=== PATIENT | female | born 1995 | race American Indian/Alaskan Native ===

== ENCOUNTER 2020-09-02 00:54 | Inpatient (IN) | payer OTHER ==
[2020-09-02] MEDS ORDERED: ONDANSETRON 4 MG/2 ML INJ ONE ×2 (01:31→07:10)
--- NOTE | 2020-09-02 03:20 | Cat Scan Report ---
CT head/brain wo con INDICATION: Altered Mental Status. TECHNIQUE: Routine CT head without contrast. All CT scans at this location are performed using CT dos e reduction for ALARA by means of automated exposure control. COMPARISON: None. FINDINGS: BRAIN / INTRACRANIAL CONTENTS: No acute hemorrhage, mass effect, midline shift, or hydrocephalus. No appreciable acute large territorial or lacunar infarct. No chronic infarct or focal atrophy. Normal b rain volume and ventricular/sulcal size for age. ORBITS: No significant abnormality of visualized orbits. SINUSES / MASTOIDS: No significant abnormality of visualized sinuses and mastoid air cells. ADDITIONAL FINDINGS: None. IMPRESSION: 1. No acute intracranial abnormality. Signer Name: Silver Emerson MD Signed: 09/02/2020 3:19 AM Workstation Name: Marley Spoon
[2020-09-02] MEDS ORDERED: SODIUM CHLORIDE 0.9% 1000 ML 1,000 ML IV ONE ×2 (03:27→05:26)
[2020-09-02 04:22] LABS: INR 1.09 (0.87-1.13)
[2020-09-02 04:23] LABS: Partial Thromboplastin Time 25.8 Sec. (24.2-36.6)
[2020-09-02] MEDS ORDERED: ACETAMINOPHEN 325 MG TAB PO PRN (04:57)
--- NOTE | 2020-09-02 05:13 | Emergency Department Report ---
History of Present Illness - General Chief Complaint: Altered Mental Status Time Seen by Provider: 09/02/20 03:27 Source: patient, EMS Mode of arrival: Stretcher Limitations: No Limitations - History of Present Illness Initial Comments: Patient brought via EMS, lethargic, with the complaint of taking 20 extra strength Tylenol, and a suicidal gesture. Family, was unable to verified how many pills the patient took, but did confirm the suicidal gesture. Patient hyperventilating, unable to contribute much to story. - Related Data Allergies Allergy/AdvReac Type Severity Reaction Status Date / Time dill oil Allergy Unknown Verified 09/02/20 04:04 ED Review of Systems ROS: Stated complaint: Other details as noted in HPI Comment: Unobtainable due to pts medical conditions ED Past Medical Hx - Past Medical History Previous Medical History?: No ED Physical Exam - General General appearance: lethargic, in distress - Head Head exam: Present: atraumatic, normocephalic - Eye Eye exam: Present: normal appearance - ENT ENT exam: Present: mucous membranes moist - Neck Neck exam: Present: normal inspection - Respiratory Respiratory exam: Present: normal lung sounds bilaterally. Absent: respiratory distress - Cardiovascular Cardiovascular Exam: Present: normal rhythm, tachycardia. Absent: systolic murmur, diastolic murmur, rubs, gallop - GI/Abdominal GI/Abdominal exam: Present: soft, normal bowel sounds - Extremities Exam Extremities exam: Present: normal inspection - Back Exam Back exam: Present: normal inspection - Neurological Exam Neurological exam: Present: altered, reflexes normal - Psychiatric Psychiatric exam: Present: depressed, suicidal ideation - Skin Skin exam: Present: warm, dry, intact, normal color. Absent: rash ED Course Vital Signs 09/02/20 09/02/20 09/02/20 03:02 03:15 03:30 Pulse Rate 74 89 86 Respiratory 17 27 H 29 H Rate Blood Pressure 121/61 113/60 135/49 O2 Sat by Pulse 99 99 99 Oximetry 09/02/20 09/02/20 09/02/20 03:45 04:00 04:15 Pulse Rate 107 H 93 H 95 H Respiratory 31 H 22 25 H Rate Blood Pressure 126/67 133/72 150/62 O2 Sat by Pulse 98 99 98 Oximetry 09/02/20 09/02/20 09/02/20 04:30 04:45 05:00 Pulse Rate 84 78 97 H Respiratory 26 H 18 21 Rate Blood Pressure 129/58 129/69 121/73 O2 Sat by Pulse 98 99 100 Oximetry 09/02/20 09/02/20 09/02/20 05:15 05:30 05:45 Pulse Rate 96 H 79 85 Respiratory 17 27 H 12 Rate Blood Pressure 114/57 130/75 121/78 O2 Sat by Pulse 99 99 98 Oximetry ED Medical Decision Making - Radiology Data Radiology results: report reviewed, image reviewed - Medical Decision Making acetaminophen od, nomogram plotted, treatment recommended. - Differential Diagnosis alcohol abuse, dts, drug od, Critical Care Time: Yes Critical care time in (mins) excluding proc time.: 45 Critical care attestation.: If time is entered above; I have spent that time in minutes in the direct care of this critically ill patient, excluding procedure time. Critical Care Time: managing tylenol od, ams, starting mucomyst, admit to [facility] ED Disposition Clinical Impression: Acetaminophen overdose Qualifiers: Encounter type: initial encounter Injury intent: intentional self-harm Qualified Code(s): T39.1X2A - Poisoning by 4-Aminophenol derivatives, intentional self-harm, initial encounter Suicide attempt by acetaminophen overdose Qualifiers: Encounter type: initial encounter Qualified Code(s): T39.1X2A - Poisoning by 4- Aminophenol derivatives, intentional self-harm, initial encounter Disposition: DC-09 OP ADMIT IP TO THIS HOSP Is pt being admited?: Yes Does the pt Need Aspirin: No Condition: Critical Referrals: PRIMARY CARE, [Primary Care Provider] - 3-5 Days
[2020-09-02] MEDS ORDERED: ONDANSETRON 4 MG/2 ML INJ IV PRN (05:30)
[2020-09-02 05:31] LABS: ABG Base Excess -4.2 mmol/L (-2.0-3.0); ABG HCO3 19.3 mmol/L (20.0-26.0); ABG Methemoglobin 0.8 % (0.0-1.5); ABG Oxygen Saturation 98.2 % (95.0-99.0); ABG PCO2 29.9 mm Hg; ABG PH 7.427 pH Units (7.350-7.450); ABG PO2 113.2 mm Hg (80.0-90.0)
--- NOTE | 2020-09-02 05:59 | History and Physical Report ---
History of Present Illness Date of examination: 09/02/20 Date of admission: 09/02/20 Chief complaint: Chief complaint is lethargy and drug overdose with Tylenol History of present illness: History of presenting illness, patient is a 25-year-old female who took about 20 tablets of extra strength Tylenol with the intention of killing herself after having some misunderstanding with her significant other. There was no history of nausea and vomiting, there was no history of abdominal pain, shortness of breath, headache, dizziness or altered mental status, however patient was unable to provide detailed information about what happened. Past History Past Surgical History: No surgical history Social history: no significant social history Family history: no significant family history Medications and Allergies Allergies Allergy/AdvReac Type Severity Reaction Status Date / Time dill oil Allergy Unknown Verified 09/02/20 04:04 Active Meds: Active Medications Heparin Sodium (Porcine) (Heparin) 5,000 unit SUB-Q Q12HR SAVANNA Sodium Chloride (Nacl 0.9% 1000 Ml) 1,000 mls @ 999 mls/hr IV BOLUS ONE Stop: 09/02/20 06:26 Acetylcysteine 13,650 mg/ (Dextrose) 268.25 mls @ 268.25 mls/hr IV ONCE ONE Stop: 09/02/20 06:59 Acetylcysteine 4,550 mg/ (Dextrose) 522.75 mls @ 130.688 mls/hr IV ONCE ONE Stop: 09/02/20 11:29 Acetylcysteine 9,100 mg/ (Dextrose) 1,045.5 mls @ 62.5 mls/hr IV ONCE ONE Stop: 09/03/20 04:43 Sodium Chloride (Nacl 0.9% 1000 Ml) 1,000 mls @ 125 mls/hr IV DIRECT SAVANNA Ondansetron HCl (Zofran) 4 mg IV Q8H PRN PRN Reason: Nausea And Vomiting Sodium Chloride (Sodium Chloride Flush Syringe 10 Ml) 10 ml IV BID SAVANNA Sodium Chloride (Sodium Chloride Flush Syringe 10 Ml) 10 ml IV PRN PRN PRN Reason: LINE FLUSH Review of Systems Constitutional: malaise, no fever, no anorexia, no fatigue, no weakness Eyes: bilateral: other (NO BILATERAL EYE SYMPTOMS) Ears, nose, mouth and throat: no sore throat, no odynophagia, no headache Breasts: deferred Cardiovascular: no chest pain, no palpitations, no syncope, no lightheadedness, no shortness of breath Respiratory: no cough, no shortness of breath, no dyspnea on exertion, no wheezing Gastrointestinal: no abdominal pain, no nausea, no vomiting, no diarrhea, no hematemesis, no hematochezia Musculoskeletal: no neck stiffness, no neck pain, no muscle weakness, no myalgias Integumentary: no rash, no pruritis, no redness, no sores, no jaundice Neurological: change in speech, no paralysis, no weakness, no parathesias, no numbness, no tingling, no syncope, no tremors, no headaches, no convulsions, no change in mentation, no confusion, no memory loss Psychiatric: suicidal ideation, depression Endocrine: no polydipsia, no polyuria, no nocturia, no palpatations Hematologic/Lymphatic: no easy bruising, no easy bleeding Exam - Constitutional Vitals: Temp Pulse Resp BP Pulse Ox 85 12 121/78 98 09/02/20 05:45 09/02/20 05:45 09/02/20 05:45 09/02/20 05:45 General appearance: Present: no acute distress, mild distress - EENT Eyes: Present: PERRL, EOM intact ENT: hearing intact, clear oral mucosa - Neck Neck: Present: supple, normal ROM - Respiratory Respiratory effort: normal - Cardiovascular Rhythm: regular Heart Sounds: Present: S1 & S2. Absent: gallop, systolic murmur, diastolic murmur, click - Extremities Extremities: no ischemia, No edema Peripheral Pulses: within normal limits - Abdominal General gastrointestinal: Present: soft, non-tender, non-distended. Absent: tender, distended, rigid, hepatomegaly, splenomegaly Female genitourinary: Present: deferred - Rectal Rectal Exam: deferred - Integumentary Integumentary: Present: clear, warm, dry, jaundice - Musculoskeletal Musculoskeletal: strength equal bilaterally, generalized weakness - Psychiatric Psychiatric: depressed HEART Score - HEART Score Risk factors: No known risk factors Troponin: < normal limit - Critical Actions Critical Actions: 0-3 pts:0.9-1.7%risk of adverse cardiac event.Candidate for discharge Results - Labs Labs: Laboratory Last Values PT 14.2 Sec. (12.2-14.9) 09/02/20 03:44 INR 1.09 (0.87-1.13) 09/02/20 03:44 APTT 25.8 Sec. (24.2-36.6) 09/02/20 03:44 ABG pH 7.427 pH Units (7.350-7.450) 09/02/20 05:07 ABG pCO2 29.9 mm Hg 09/02/20 05:07 ABG pO2 113.2 mm Hg (80.0-90.0) H 09/02/20 05:07 ABG HCO3 19.3 mmol/L (20.0-26.0) L 09/02/20 05:07 ABG O2 Saturation 98.2 % (95.0-99.0) 09/02/20 05:07 ABG O2 Content 14.8 (0.0-44) 09/02/20 05:07 ABG Base Excess -4.2 mmol/L (-2.0-3.0) L 09/02/20 05:07 ABG Hemoglobin 10.8 gm/dl (12.0-16.0) L 09/02/20 05:07 ABG Carboxyhemoglobin 1.3 % (0.0-5.0) 09/02/20 05:07 ABG Methemoglobin 0.8 % (0.0-1.5) 09/02/20 05:07 Oxyhemoglobin 96.1 % (95.0-99.0) 09/02/20 05:07 FiO2 21 % 09/02/20 05:07 Lactic Acid 1.30 mmol/L (0.7-2.0) 09/02/20 03:44 Ammonia 30.0 umol/L (25-60) 09/02/20 03:44 Salicylates < 0.3 mg/dL (2.8-20.0) L 09/02/20 04:15 Acetaminophen 181.2 ug/mL (10.0-30.0) H 09/02/20 04:15 Assessment and Plan - Patient Problems (1) Acetaminophen overdose Current Visit: Yes Status: Acute Qualifiers: Encounter type: initial encounter Injury intent: intentional self-harm Qualified Code(s): T39.1X2A - Poisoning by 4-Aminophenol derivatives, intentional self-harm, initial encounter Plan to address problem: 1. ICU ADMISSION 2. ACETADOTE PER POISON CONTROL RECOMMENDATION 3. I.V NORMAL SALINE 4. CONTINUE INVOLUNTARY CONFINEMENT 5. MENTAL HEALTH/PSYCHIATRIC CONSULT 6. I.V ZOFRAN FOR NAUSEA AND VOMITING (2) Suicide attempt by acetaminophen overdose Current Visit: Yes Status: Acute Qualifiers: Encounter type: initial encounter Qualified Code(s): T39.1X2A - Poisoning by 4-Aminophenol derivatives, intentional self-harm, initial encounter Plan to address problem: 1. PSYCHIATRIC CONSULT 2. INVOLUTARY CONFINEMENT
[2020-09-02] MEDS ORDERED: DEXTROSE 5% IV ONE ×3 (06:00→12:00)
[2020-09-02] MEDS ORDERED: ACETADOTE IV ONE ×3 (06:00→12:00)
[2020-09-02] MEDS ORDERED: WATER IV ONE ×3 (06:00→12:00)
[2020-09-02] MEDS ORDERED: SODIUM CHLORIDE 0.9% 1000 ML 1,000 ML ONE (06:11)
[2020-09-02 06:45] LABS: Alanine Aminotransferase 13 units/L (7-56); Albumin 3.7 g/dL (3.9-5)
[2020-09-02 06:47] LABS: Bilirubin,Direct < 0.2 mg/dL (0-0.2)
[2020-09-02 07:19] LABS: Alanine Aminotransferase 15 units/L (7-56); Albumin 4.6 g/dL (3.9-5); BUN/Creatinine Ratio 13; Blood Urea Nitrogen 9 mg/dL (7-17); Calcium 9.4 mg/dL (8.4-10.2); Hemolysis Index 12
[2020-09-02] MEDS ORDERED: MORPHINE 2 MG/1 ML INJ IV PRN (10:29)
[2020-09-02 11:20] LABS: Alanine Aminotransferase 14 units/L (7-56); Albumin 4.3 g/dL (3.9-5)
[2020-09-02 11:27] LABS: Bilirubin,Direct < 0.2 mg/dL (0-0.2)
[2020-09-02] MEDS ORDERED: PANTOPRAZOLE 40 MG INJ IV ONE (11:48)
[2020-09-02] MEDS ORDERED: HEPARIN 5,000 UNIT/1 ML VIAL ONE (11:48)
[2020-09-02] MEDS: PANTOPRAZOLE 40 MG INJ IV SCH (13:23)
[2020-09-02] MEDS: HEPARIN 5,000 UNIT/1 ML VIAL SUB-Q SCH (13:24)
[2020-09-02 15:31] LABS: Amphetamine Screen,Urine PRESUMPTIVE NEGATIVE; Benzodiazepines Screen,Urine PRESUMPTIVE NEGATIVE; Cannabinoid Screen,Urine PRESUMPTIVE POSITIVE; Cocaine Screen,Urine PRESUMPTIVE NEGATIVE; Methadone Screen,Urine PRESUMPTIVE NEGATIVE; Opiate Screen,Urine PRESUMPTIVE NEGATIVE
[2020-09-02 15:32] LABS: Bilirubin,Urine NEG (Negative); Blood,Urine NEG (Negative); Color,Urine Straw (Yellow); Protein,Urine <15 mg/dL mg/dL (Negative); Urobilinogen,Urine < 2.0 mg/dL (<2.0)
[2020-09-02 15:40] LABS: HCG Qualitative,Urine Negative (Negative)
[2020-09-02 19:43] LABS: Alanine Aminotransferase 16 units/L (7-56); Albumin 3.9 g/dL (3.9-5)
[2020-09-02 20:02] LABS: Bilirubin,Direct < 0.2 mg/dL (0-0.2)
[2020-09-03] MEDS ORDERED: PANTOPRAZOLE 40 MG INJ IV ONE ×2 (04:18→11:43)
[2020-09-03 04:53] LABS: INR 1.19 (0.87-1.13)
[2020-09-03 05:04] LABS: Alanine Aminotransferase 16 units/L (7-56); Albumin 3.8 g/dL (3.9-5); BUN/Creatinine Ratio 12; Blood Urea Nitrogen 6 mg/dL (7-17); Calcium 8.9 mg/dL (8.4-10.2); Hemolysis Index 7
[2020-09-03] MEDS: HEPARIN 5,000 UNIT/1 ML VIAL SUB-Q SCH ×3 (07:23→22:01)
[2020-09-03] MEDS: PANTOPRAZOLE 40 MG INJ IV SCH ×3 (07:25→22:01)
--- NOTE | 2020-09-03 09:17 | Progress Note ---
Assessment and Plan Assessment and plan: Tylenol overdose -Poison control was consulted and was treated with N-acetylcysteine. -Tylenol level was high on admission and on subsequent checkup, but this morning Tylenol level is low -AST and ALT within normal limit, slight elevation in INR -Patient is doing well Suicidal attempt -Patient admitted on 101 -Mental health consulted DVT prophylaxis GI prophylaxis on Protonix Disposition; per mental health recommendation patient will go to inpatient psychiatry. Patient is medically clear. History Interval history: Patient was seen and evaluated this morning Patient was alert and oriented Patient states she has some abdominal discomfort but no other complaints Hospitalist Physical - Physical exam Narrative exam: Not in cardiopulmonary distress. The patient appeared well nourished and normally developed. Vital signs as documented. Head exam is unremarkable. No scleral icterus . Neck is without jugular venous distension, thyromegaly, or carotid bruits. Lungs are clear to auscultation. Cardiac exam reveals regular rate and Rhythm. Abdominal exam reveals normal bowel sounds, nontender, no organomegaly. Extremities are nonedematous and both femoral and pedal pulses are normal. [place] PILOT: Alert and oriented 3. No focal weakness. - Constitutional Vitals: Temp Pulse Resp BP Pulse Ox 72 28 H 136/76 99 09/03/20 07:00 09/03/20 07:00 09/03/20 07:00 09/03/20 06:00 General appearance: Present: no acute distress, mild distress HEART Score - HEART Score Risk factors: No known risk factors Troponin: Troponin T < 0.010 ng/mL (0.00-0.029) 09/02/20 03:44 Troponin: < normal limit - Critical Actions Critical Actions: 0-3 pts:0.9-1.7%risk of adverse cardiac event.Candidate for discharge Results - Labs CBC & Chem 7: 09/03/20 03:55 Labs: Laboratory Last Values PT 15.3 Sec. (12.2-14.9) H 09/03/20 03:55 INR 1.19 (0.87-1.13) H 09/03/20 03:55 APTT 25.8 Sec. (24.2-36.6) 09/02/20 03:44 ABG pH 7.427 pH Units (7.350-7.450) 09/02/20 05:07 ABG pCO2 29.9 mm Hg 09/02/20 05:07 ABG pO2 113.2 mm Hg (80.0-90.0) H 09/02/20 05:07 ABG HCO3 19.3 mmol/L (20.0-26.0) L 09/02/20 05:07 ABG O2 Saturation 98.2 % (95.0-99.0) 09/02/20 05:07 ABG O2 Content 14.8 (0.0-44) 09/02/20 05:07 ABG Base Excess -4.2 mmol/L (-2.0-3.0) L 09/02/20 05:07 ABG Hemoglobin 10.8 gm/dl (12.0-16.0) L 09/02/20 05:07 ABG Carboxyhemoglobin 1.3 % (0.0-5.0) 09/02/20 05:07 ABG Methemoglobin 0.8 % (0.0-1.5) 09/02/20 05:07 Oxyhemoglobin 96.1 % (95.0-99.0) 09/02/20 05:07 FiO2 21 % 09/02/20 05:07 Sodium 137 mmol/L (137-145) 09/03/20 03:55 Potassium 3.0 mmol/L (3.6-5.0) L 09/03/20 03:55 Chloride 105.4 mmol/L (98-107) 09/03/20 03:55 Carbon Dioxide 19 mmol/L (22-30) L 09/03/20 03:55 Anion Gap 16 mmol/L 09/03/20 03:55 BUN 6 mg/dL (7-17) L 09/03/20 03:55 Creatinine 0.5 mg/dL (0.6-1.2) L 09/03/20 03:55 Estimated GFR > 60 ml/min 09/03/20 03:55 BUN/Creatinine Ratio 12 % 09/03/20 03:55 Glucose 123 mg/dL (65-100) H 09/03/20 03:55 Hemoglobin A1c 8.6 % (4-6) H 09/02/20 05:37 Lactic Acid 1.30 mmol/L (0.7-2.0) 09/02/20 03:44 Calcium 8.9 mg/dL (8.4-10.2) 09/03/20 03:55 Total Bilirubin 1.20 mg/dL (0.1-1.2) 09/03/20 03:55 Direct Bilirubin < 0.2 mg/dL (0-0.2) 09/02/20 19:09 Indirect Bilirubin 0.6 mg/dL 09/02/20 19:09 AST 13 units/L (5-40) 09/03/20 03:55 ALT 16 units/L (7-56) 09/03/20 03:55 Alkaline Phosphatase 84 units/L (35-129) 09/03/20 03:55 Ammonia 30.0 umol/L (25-60) 09/02/20 03:44 Total Creatine Kinase 143 units/L (30-135) H 09/02/20 03:44 Troponin T < 0.010 ng/mL (0.00-0.029) 09/02/20 03:44 Total Protein 6.7 g/dL (6.3-8.2) 09/03/20 03:55 Albumin 3.8 g/dL (3.9-5) L 09/03/20 03:55 Albumin/Globulin Ratio 1.3 % 09/03/20 03:55 TSH 6.520 mlU/mL (0.270-4.200) H 09/02/20 03:44 Urine Color Straw (Yellow) 09/02/20 15:09 Urine Turbidity Clear (Clear) 09/02/20 15:09 Urine pH 5.0 (5.0-7.0) 09/02/20 15:09 Ur Specific [place] 1.023 (1.003-1.030) 09/02/20 15:09 Urine Protein <15 mg/dl mg/dL (Negative) 09/02/20 15:09 Urine Glucose (UA) >=500 mg/dL (Negative) 09/02/20 15:09 Urine Ketones 80 mg/dL (Negative) 09/02/20 15:09 Urine Blood Neg (Negative) 09/02/20 15:09 Urine Nitrite Neg (Negative) 09/02/20 15:09 Urine Bilirubin Neg (Negative) 09/02/20 15:09 Urine Urobilinogen < 2.0 mg/dL (<2.0) 09/02/20 15:09 Ur Leukocyte Esterase Neg (Negative) 09/02/20 15:09 Urine WBC (Auto) 1.0 /HPF (0.0-6.0) 09/02/20 15:09 Urine RBC (Auto) 6.0 /HPF (0.0-6.0) 09/02/20 15:09 Urine HCG, Qual Negative (Negative) 09/02/20 15:09 Salicylates < 0.3 mg/dL (2.8-20.0) L 09/03/20 03:55 Urine Opiates Screen Presumptive negative 09/02/20 15:09 Urine Methadone Screen Presumptive negative 09/02/20 15:09 Acetaminophen 5.0 ug/mL (10.0-30.0) L 09/03/20 03:55 Ur Barbiturates Screen Presumptive negative 09/02/20 15:09 Ur Phencyclidine Scrn Presumptive negative 09/02/20 15:09 Ur Amphetamines Screen Presumptive negative 09/02/20 15:09 U Benzodiazepines Scrn Presumptive negative 09/02/20 15:09 Urine Cocaine Screen Presumptive negative 09/02/20 15:09 U Marijuana (THC) Screen Presumptive positive 09/02/20 15:09 Drugs of Abuse Note Disclamer 09/02/20 15:09 Plasma/Serum Alcohol < 0.01 % (0-0.07) 09/02/20 03:44 Microbiology: Microbiology 09/02/20 03:44 Peripheral/Venous Blood Culture - Preliminary NO GROWTH AFTER 24 HOURS 09/02/20 04:15 Peripheral/Venous Blood Culture - Preliminary NO GROWTH AFTER 24 HOURS [place]/IV: IV Catheter Type [Left INT / Saline Lock Antecubital] Active Medications - Current Medications Current Medications: Generic Name Dose Route Start Last Admin Trade Name Freq PRN Reason Stop Dose Admin Heparin Sodium (Porcine) 5,000 unit 09/02/20 10:00 09/03/20 07:23 Heparin SUB-Q Not Given Q12HR SAVANNA Sodium Chloride 1,000 mls @ 125 mls/hr 09/02/20 06:00 Nacl 0.9% 1000 Ml IV DIRECT SAVANNA Morphine Sulfate 2 mg 09/02/20 10:29 Morphine IV Q4H PRN Pain, Moderate (4-6) Ondansetron HCl 4 mg 09/02/20 05:30 09/02/20 07:10 Zofran IV 4 mg Q8H PRN Administration Nausea And Vomiting Pantoprazole Sodium 40 mg 09/02/20 11:00 09/03/20 07:25 Protonix IV 40 mg BID SAVANNA Administration Sodium Chloride 10 ml 09/02/20 10:00 09/03/20 07:25 Sodium Chloride Flush Syringe 10 Ml IV 10 ml BID SAVANNA Administration Sodium Chloride 10 ml 09/02/20 05:30 Sodium Chloride Flush Syringe 10 Ml IV PRN PRN LINE FLUSH
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
[2020-09-03] MEDS ORDERED: HEPARIN 5,000 UNIT/1 ML VIAL ONE (11:42)
[2020-09-03] MEDS: ZOLPIDEM 5 MG TAB PO SCH (22:01)
--- NOTE | 2020-09-04 08:19 | Progress Note ---
Assessment and Plan Assessment and plan: Tylenol overdose -Poison control was consulted and was treated with N-acetylcysteine. -Tylenol level was high on admission and on subsequent checkup, but this morning Tylenol level is low -AST and ALT within normal limit, slight elevation in INR -Patient is doing well Suicidal attempt -Patient admitted on 101 -Mental health consulted DVT prophylaxis GI prophylaxis on Protonix Disposition; per mental health recommendation patient will go to inpatient psychiatry. Patient is medically clear. History Interval history: Patient was seen and evaluated this morning Patient was alert and oriented Patient states she has some abdominal discomfort but no other complaints Hospitalist Physical - Physical exam Narrative exam: Not in cardiopulmonary distress. The patient appeared well nourished and normally developed. Vital signs as documented. Head exam is unremarkable. No scleral icterus . Neck is without jugular venous distension, thyromegaly, or carotid bruits. Lungs are clear to auscultation. Cardiac exam reveals regular rate and Rhythm. Abdominal exam reveals normal bowel sounds, nontender, no organomegaly. Extremities are nonedematous and both femoral and pedal pulses are normal. 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 No focal weakness. - Constitutional Vitals: Temp Pulse Resp BP Pulse Ox 98.2 F 79 16 107/68 98 09/04/20 07:40 09/04/20 07:40 09/04/20 07:40 09/04/20 07:40 09/04/20 07:40 General appearance: Present: no acute distress, mild distress HEART Score - HEART Score Risk factors: No known risk factors Troponin: Troponin T < 0.010 ng/mL (0.00-0.029) 09/02/20 03:44 Troponin: < normal limit - Critical Actions Critical Actions: 0-3 pts:0.9-1.7%risk of adverse cardiac event.Candidate for discharge Results - Labs CBC & Chem 7: 09/03/20 03:55 Labs: Laboratory Last Values PT 15.3 Sec. (12.2-14.9) H 09/03/20 03:55 INR 1.19 (0.87-1.13) H 09/03/20 03:55 APTT 25.8 Sec. (24.2-36.6) 09/02/20 03:44 ABG pH 7.427 pH Units (7.350-7.450) 09/02/20 05:07 ABG pCO2 29.9 mm Hg 09/02/20 05:07 ABG pO2 113.2 mm Hg (80.0-90.0) H 09/02/20 05:07 ABG HCO3 19.3 mmol/L (20.0-26.0) L 09/02/20 05:07 ABG O2 Saturation 98.2 % (95.0-99.0) 09/02/20 05:07 ABG O2 Content 14.8 (0.0-44) 09/02/20 05:07 ABG Base Excess -4.2 mmol/L (-2.0-3.0) L 09/02/20 05:07 ABG Hemoglobin 10.8 gm/dl (12.0-16.0) L 09/02/20 05:07 ABG Carboxyhemoglobin 1.3 % (0.0-5.0) 09/02/20 05:07 ABG Methemoglobin 0.8 % (0.0-1.5) 09/02/20 05:07 Oxyhemoglobin 96.1 % (95.0-99.0) 09/02/20 05:07 FiO2 21 % 09/02/20 05:07 Sodium 137 mmol/L (137-145) 09/03/20 03:55 Potassium 3.0 mmol/L (3.6-5.0) L 09/03/20 03:55 Chloride 105.4 mmol/L (98-107) 09/03/20 03:55 Carbon Dioxide 19 mmol/L (22-30) L 09/03/20 03:55 Anion Gap 16 mmol/L 09/03/20 03:55 BUN 6 mg/dL (7-17) L 09/03/20 03:55 Creatinine 0.5 mg/dL (0.6-1.2) L 09/03/20 03:55 Estimated GFR > 60 ml/min 09/03/20 03:55 BUN/Creatinine Ratio 12 % 09/03/20 03:55 Glucose 123 mg/dL (65-100) H 09/03/20 03:55 Hemoglobin A1c 8.6 % (4-6) H 09/02/20 05:37 Lactic Acid 1.30 mmol/L (0.7-2.0) 09/02/20 03:44 Calcium 8.9 mg/dL (8.4-10.2) 09/03/20 03:55 Total Bilirubin 1.20 mg/dL (0.1-1.2) 09/03/20 03:55 Direct Bilirubin < 0.2 mg/dL (0-0.2) 09/02/20 19:09 Indirect Bilirubin 0.6 mg/dL 09/02/20 19:09 AST 13 units/L (5-40) 09/03/20 03:55 ALT 16 units/L (7-56) 09/03/20 03:55 Alkaline Phosphatase 84 units/L (35-129) 09/03/20 03:55 Ammonia 30.0 umol/L (25-60) 09/02/20 03:44 Total Creatine Kinase 143 units/L (30-135) H 09/02/20 03:44 Troponin T < 0.010 ng/mL (0.00-0.029) 09/02/20 03:44 Total Protein 6.7 g/dL (6.3-8.2) 09/03/20 03:55 Albumin 3.8 g/dL (3.9-5) L 09/03/20 03:55 Albumin/Globulin Ratio 1.3 % 09/03/20 03:55 TSH 6.520 mlU/mL (0.270-4.200) H 09/02/20 03:44 Urine Color Straw (Yellow) 09/02/20 15:09 Urine Turbidity Clear (Clear) 09/02/20 15:09 Urine pH 5.0 (5.0-7.0) 09/02/20 15:09 Ur Specific [place] 1.023 (1.003-1.030) 09/02/20 15:09 Urine Protein <15 mg/dl mg/dL (Negative) 09/02/20 15:09 Urine Glucose (UA) >=500 mg/dL (Negative) 09/02/20 15:09 Urine Ketones 80 mg/dL (Negative) 09/02/20 15:09 Urine Blood Neg (Negative) 09/02/20 15:09 Urine Nitrite Neg (Negative) 09/02/20 15:09 Urine Bilirubin Neg (Negative) 09/02/20 15:09 Urine Urobilinogen < 2.0 mg/dL (<2.0) 09/02/20 15:09 Ur Leukocyte Esterase Neg (Negative) 09/02/20 15:09 Urine WBC (Auto) 1.0 /HPF (0.0-6.0) 09/02/20 15:09 Urine RBC (Auto) 6.0 /HPF (0.0-6.0) 09/02/20 15:09 Urine HCG, Qual Negative (Negative) 09/02/20 15:09 Salicylates < 0.3 mg/dL (2.8-20.0) L 09/03/20 03:55 Urine Opiates Screen Presumptive negative 09/02/20 15:09 Urine Methadone Screen Presumptive negative 09/02/20 15:09 Acetaminophen 5.0 ug/mL (10.0-30.0) L 09/03/20 03:55 Ur Barbiturates Screen Presumptive negative 09/02/20 15:09 Ur Phencyclidine Scrn Presumptive negative 09/02/20 15:09 Ur Amphetamines Screen Presumptive negative 09/02/20 15:09 U Benzodiazepines Scrn Presumptive negative 09/02/20 15:09 Urine Cocaine Screen Presumptive negative 09/02/20 15:09 U Marijuana (THC) Screen Presumptive positive 09/02/20 15:09 Drugs of Abuse Note Disclamer 09/02/20 15:09 Plasma/Serum Alcohol < 0.01 % (0-0.07) 09/02/20 03:44 Microbiology: Microbiology 09/02/20 03:44 Peripheral/Venous Blood Culture - Preliminary NO GROWTH AFTER 48 HOURS 09/02/20 04:15 Peripheral/Venous Blood Culture - Preliminary NO GROWTH AFTER 48 HOURS [place]/IV: Voiding Method Indwelling Catheter IV Catheter Type [Left INT / Saline Lock Antecubital] Active Medications - Current Medications Current Medications: Generic Name Dose Route Start Last Admin Trade Name Freq PRN Reason Stop Dose Admin Heparin Sodium (Porcine) 5,000 unit 09/02/20 10:00 09/03/20 22:01 Heparin SUB-Q 5,000 unit Q12HR SAVANNA Administration Sodium Chloride 1,000 mls @ 125 mls/hr 09/02/20 06:00 Nacl 0.9% 1000 Ml IV DIRECT SAVANNA Morphine Sulfate 2 mg 09/02/20 10:29 Morphine IV Q4H PRN Pain, Moderate (4-6) Ondansetron HCl 4 mg 09/02/20 05:30 09/02/20 07:10 Zofran IV 4 mg Q8H PRN Administration Nausea And Vomiting Pantoprazole Sodium 40 mg 09/02/20 11:00 09/03/20 22:01 Protonix IV 40 mg BID SAVANNA Administration Sodium Chloride 10 ml 09/02/20 10:00 09/03/20 22:01 Sodium Chloride Flush Syringe 10 Ml IV 10 ml BID SAVANNA Administration Sodium Chloride 10 ml 09/02/20 05:30 Sodium Chloride Flush Syringe 10 Ml IV PRN PRN LINE FLUSH Zolpidem Tartrate 5 mg 09/03/20 22:00 09/03/20 22:01 Ambien PO 5 mg QHS SAVANNA Administration
[2020-09-04] MEDS: PANTOPRAZOLE 40 MG TAB PO SCH ×2 (10:55→17:47)
[2020-09-04] MEDS: HEPARIN 5,000 UNIT/1 ML VIAL SUB-Q SCH ×2 (10:55→21:36)
[2020-09-04] MEDS: SODIUM CHLORIDE 0.9% 1000 ML 1,000 ML IV SCH ×2 (10:55→21:39)
--- NOTE | 2020-09-04 13:22 | Progress Note ---
Subjective - Reason for Consult Consult date: 09/04/20 Reason for consult: suicidal attempt - Chief Complaint Chief complaint: During in interview with the patient she is sitting up in bed. She makes fair eye contact. She verbalizes being depressed and feeling suicidal. The patient says "I get overwhelmed and have a lot going on." She says "I don't care about living." She denies hallucinations of any kind. REVIEW OF SYSTEMS Constitutional: Negative for weight loss ENT: Negative for stridor Respiratory: Negative for cough or hemoptysis All other systems reviewed and are negative MENTAL STATUS EXAMINATION General Appearance and Behavior: Age appropriate, good hygiene, wearing appropriate clothes, fair eye contact Cooperation: Participating/engaged, but Guarded Psychomotor Behavior: Psychomotor normal Mood: depressed Affect and affective range: Congruent with stated mood Thought Process: logical Thought Content: hopelessness Speech: Normal rate, volume and rythm Intellectual Functioning: Average Suicidal Ideation: Yes Homicidal Ideation: Denies HI Impulse Control: Impaired Hallucinations: Wili Insight and Judgment: Limited insight and judgment Memory: Normal Attention: Normal Orientation: Alert, oriented Assessment and Plan (1) Major depressive Disorder, Severe w/o Psychotic Features Current Visit: Yes Status: Acute TREATMENT MEDICATIONS: Start Zoloft 25mg po daily Risks, benefits and alternatives of medications discussed with the patient, questions answered and consent obtained from patient. PSYCHOTHERAPY: Supportive psychotherapy provided MEDICAL: Per primary team DELIRIUM PRECAUTIONS: Please re-orient patient frequently, keep lights on during the day, and minimize benzodiazepines and opiates as these medications could worsen patient's confusion. 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 Please contact with any questions and/or concerns. Mental Status Exam - Vital signs Last Vital Signs Temp 98.8 F 09/04/20 11:53 Pulse 85 09/04/20 11:53 Resp 16 09/04/20 11:53 BP 121/66 09/04/20 11:53 Pulse Ox 94 09/04/20 11:53
[2020-09-04] MEDS: SERTRALINE 25 MG TAB PO SCH (17:47)
[2020-09-04] MEDS: ZOLPIDEM 5 MG TAB PO SCH (21:36)
[2020-09-05] MEDS: PANTOPRAZOLE 40 MG TAB PO SCH ×2 (06:39→16:35)
[2020-09-05] MEDS: SODIUM CHLORIDE 0.9% 1000 ML 1,000 ML IV SCH ×2 (06:39→16:35)
--- NOTE | 2020-09-05 07:24 | Progress Note ---
Subjective - Reason for Consult Consult date: 09/05/20 Reason for consult: MHE Requesting physician: MARLEEN PANIAGUA III - Chief Complaint Chief complaint: Psych Progress Today patient in room, spekaing with brother on phone, says her parents her yet to reach out to her. Patient endorses depressed mood with intermittent SI, she also states her sleep has been disturbed and is difficult to stay asleep/ REVIEW OF SYSTEMS Constitutional: Negative for weight loss ENT: Negative for stridor Respiratory: Negative for cough or hemoptysis All other systems reviewed and are negative MENTAL STATUS EXAMINATION General Appearance and Behavior: Age appropriate, good hygiene, wearing appropriate clothes, fair eye contact Cooperation: Participating/engaged, but Guarded Psychomotor Behavior: Psychomotor normal Mood: depressed Affect and affective range: Congruent with stated mood Thought Process: logical Thought Content: hopelessness Speech: Normal rate, volume and rythm Intellectual Functioning: Average Suicidal Ideation: Yes Homicidal Ideation: Denies HI Impulse Control: Impaired Hallucinations: Wili Insight and Judgment: Limited insight and judgment Memory: Normal Attention: Normal Orientation: Alert, oriented Assessment and Plan (1) Major depressive Disorder, Severe w/o Psychotic Features Current Visit: Yes Status: Acute TREATMENT MEDICATIONS: Start Zoloft 25mg po daily Risks, benefits and alternatives of medications discussed with the patient, questions answered and consent obtained from patient. PSYCHOTHERAPY: Supportive psychotherapy provided MEDICAL: Per primary team DELIRIUM PRECAUTIONS: Please re-orient patient frequently, keep lights on during the day, and minimize benzodiazepines and opiates as these medications could worsen patient's confusion. 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 Please contact with any questions and/or concerns. Mental Status Exam - Vital signs Last Vital Signs Temp 98.1 F 09/05/20 03:50 Pulse 83 09/05/20 03:50 Resp 16 09/05/20 03:50 BP 119/71 09/05/20 03:50 Pulse Ox 94 09/05/20 03:50 Assessment and Plan - Patient Problems (1) Major depression Current Visit: Yes Status: Acute
--- NOTE | 2020-09-05 08:52 | Progress Note ---
Assessment and Plan Assessment and plan: Tylenol overdose -Poison control was consulted and was treated with N-acetylcysteine. -Tylenol level was high on admission and on subsequent checkup, but this morning Tylenol level is low -AST and ALT within normal limit, slight elevation in INR -Patient is doing well Suicidal attempt -Patient admitted on 1012 -Mental health consulted DVT prophylaxis GI prophylaxis on Protonix Disposition; per mental health recommendation patient will go to inpatient psychiatry. Patient is medically clear. History Interval history: Patient was seen and evaluated this morning Patient was alert and oriented Patient states she has some abdominal discomfort but no other complaints Hospitalist Physical - Physical exam Narrative exam: Not in cardiopulmonary distress. The patient appeared well nourished and normally developed. Vital signs as documented. Head exam is unremarkable. No scleral icterus . Neck is without jugular venous distension, thyromegaly, or carotid bruits. Lungs are clear to auscultation. Cardiac exam reveals regular rate and Rhythm. Abdominal exam reveals normal bowel sounds, nontender, no organomegaly. Extremities are nonedematous and both femoral and pedal pulses are normal. 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 No focal weakness. - Constitutional Vitals: Temp Pulse Resp BP Pulse Ox 98.1 F 83 16 119/71 94 09/05/20 03:50 09/05/20 03:50 09/05/20 03:50 09/05/20 03:50 09/05/20 03:50 General appearance: Present: no acute distress, mild distress HEART Score - HEART Score Risk factors: No known risk factors Troponin: Troponin T < 0.010 ng/mL (0.00-0.029) 09/02/20 03:44 Troponin: < normal limit - Critical Actions Critical Actions: 0-3 pts:0.9-1.7%risk of adverse cardiac event.Candidate for discharge Results - Labs CBC & Chem 7: 09/03/20 03:55 Labs: Laboratory Last Values PT 15.3 Sec. (12.2-14.9) H 09/03/20 03:55 INR 1.19 (0.87-1.13) H 09/03/20 03:55 APTT 25.8 Sec. (24.2-36.6) 09/02/20 03:44 ABG pH 7.427 pH Units (7.350-7.450) 09/02/20 05:07 ABG pCO2 29.9 mm Hg 09/02/20 05:07 ABG pO2 113.2 mm Hg (80.0-90.0) H 09/02/20 05:07 ABG HCO3 19.3 mmol/L (20.0-26.0) L 09/02/20 05:07 ABG O2 Saturation 98.2 % (95.0-99.0) 09/02/20 05:07 ABG O2 Content 14.8 (0.0-44) 09/02/20 05:07 ABG Base Excess -4.2 mmol/L (-2.0-3.0) L 09/02/20 05:07 ABG Hemoglobin 10.8 gm/dl (12.0-16.0) L 09/02/20 05:07 ABG Carboxyhemoglobin 1.3 % (0.0-5.0) 09/02/20 05:07 ABG Methemoglobin 0.8 % (0.0-1.5) 09/02/20 05:07 Oxyhemoglobin 96.1 % (95.0-99.0) 09/02/20 05:07 FiO2 21 % 09/02/20 05:07 Sodium 137 mmol/L (137-145) 09/03/20 03:55 Potassium 3.0 mmol/L (3.6-5.0) L 09/03/20 03:55 Chloride 105.4 mmol/L (98-107) 09/03/20 03:55 Carbon Dioxide 19 mmol/L (22-30) L 09/03/20 03:55 Anion Gap 16 mmol/L 09/03/20 03:55 BUN 6 mg/dL (7-17) L 09/03/20 03:55 Creatinine 0.5 mg/dL (0.6-1.2) L 09/03/20 03:55 Estimated GFR > 60 ml/min 09/03/20 03:55 BUN/Creatinine Ratio 12 % 09/03/20 03:55 Glucose 123 mg/dL (65-100) H 09/03/20 03:55 Hemoglobin A1c 8.6 % (4-6) H 09/02/20 05:37 Lactic Acid 1.30 mmol/L (0.7-2.0) 09/02/20 03:44 Calcium 8.9 mg/dL (8.4-10.2) 09/03/20 03:55 Total Bilirubin 1.20 mg/dL (0.1-1.2) 09/03/20 03:55 Direct Bilirubin < 0.2 mg/dL (0-0.2) 09/02/20 19:09 Indirect Bilirubin 0.6 mg/dL 09/02/20 19:09 AST 13 units/L (5-40) 09/03/20 03:55 ALT 16 units/L (7-56) 09/03/20 03:55 Alkaline Phosphatase 84 units/L (35-129) 09/03/20 03:55 Ammonia 30.0 umol/L (25-60) 09/02/20 03:44 Total Creatine Kinase 143 units/L (30-135) H 09/02/20 03:44 Troponin T < 0.010 ng/mL (0.00-0.029) 09/02/20 03:44 Total Protein 6.7 g/dL (6.3-8.2) 09/03/20 03:55 Albumin 3.8 g/dL (3.9-5) L 09/03/20 03:55 Albumin/Globulin Ratio 1.3 % 09/03/20 03:55 TSH 6.520 mlU/mL (0.270-4.200) H 09/02/20 03:44 Urine Color Straw (Yellow) 09/02/20 15:09 Urine Turbidity Clear (Clear) 09/02/20 15:09 Urine pH 5.0 (5.0-7.0) 09/02/20 15:09 Ur Specific [place] 1.023 (1.003-1.030) 09/02/20 15:09 Urine Protein <15 mg/dl mg/dL (Negative) 09/02/20 15:09 Urine Glucose (UA) >=500 mg/dL (Negative) 09/02/20 15:09 Urine Ketones 80 mg/dL (Negative) 09/02/20 15:09 Urine Blood Neg (Negative) 09/02/20 15:09 Urine Nitrite Neg (Negative) 09/02/20 15:09 Urine Bilirubin Neg (Negative) 09/02/20 15:09 Urine Urobilinogen < 2.0 mg/dL (<2.0) 09/02/20 15:09 Ur Leukocyte Esterase Neg (Negative) 09/02/20 15:09 Urine WBC (Auto) 1.0 /HPF (0.0-6.0) 09/02/20 15:09 Urine RBC (Auto) 6.0 /HPF (0.0-6.0) 09/02/20 15:09 Urine HCG, Qual Negative (Negative) 09/02/20 15:09 Salicylates < 0.3 mg/dL (2.8-20.0) L 09/03/20 03:55 Urine Opiates Screen Presumptive negative 09/02/20 15:09 Urine Methadone Screen Presumptive negative 09/02/20 15:09 Acetaminophen 5.0 ug/mL (10.0-30.0) L 09/03/20 03:55 Ur Barbiturates Screen Presumptive negative 09/02/20 15:09 Ur Phencyclidine Scrn Presumptive negative 09/02/20 15:09 Ur Amphetamines Screen Presumptive negative 09/02/20 15:09 U Benzodiazepines Scrn Presumptive negative 09/02/20 15:09 Urine Cocaine Screen Presumptive negative 09/02/20 15:09 U Marijuana (THC) Screen Presumptive positive 09/02/20 15:09 Drugs of Abuse Note Disclamer 09/02/20 15:09 Plasma/Serum Alcohol < 0.01 % (0-0.07) 09/02/20 03:44 Microbiology: Microbiology 09/02/20 03:44 Peripheral/Venous Blood Culture - Preliminary NO GROWTH AFTER 72 HOURS 09/02/20 04:15 Peripheral/Venous Blood Culture - Preliminary NO GROWTH AFTER 72 HOURS [place]/IV: Voiding Method Toilet IV Catheter Type [Right INT / Saline Lock Forearm] IV Catheter Type [Left INT / Saline Lock Antecubital] Active Medications - Current Medications Current Medications: Generic Name Dose Route Start Last Admin Trade Name Freq PRN Reason Stop Dose Admin Heparin Sodium (Porcine) 5,000 unit 09/02/20 10:00 09/04/20 21:36 Heparin SUB-Q 5,000 unit Q12HR SAVANNA Administration Sodium Chloride 1,000 mls @ 125 mls/hr 09/02/20 06:00 09/05/20 06:39 Nacl 0.9% 1000 Ml IV 125 mls/hr DIRECT SAVANNA Administration Morphine Sulfate 2 mg 09/02/20 10:29 Morphine IV Q4H PRN Pain, Moderate (4-6) Ondansetron HCl 4 mg 09/02/20 05:30 09/02/20 07:10 Zofran IV 4 mg Q8H PRN Administration Nausea And Vomiting Pantoprazole Sodium 40 mg 09/04/20 10:00 09/05/20 06:39 Protonix PO 40 mg BIDAC SAVANNA Administration Sertraline HCl 25 mg 09/04/20 14:00 09/04/20 17:47 Zoloft PO 25 mg QDAY SAVANNA Administration Sodium Chloride 10 ml 09/02/20 10:00 09/04/20 21:36 Sodium Chloride Flush Syringe 10 Ml IV 10 ml BID SAVANNA Administration Sodium Chloride 10 ml 09/02/20 05:30 Sodium Chloride Flush Syringe 10 Ml IV PRN PRN LINE FLUSH Zolpidem Tartrate 5 mg 09/03/20 22:00 09/04/20 21:36 Ambien PO 5 mg QHS SAVANNA Administration
[2020-09-05] MEDS: SERTRALINE 25 MG TAB PO SCH (10:14)
[2020-09-05] MEDS: HEPARIN 5,000 UNIT/1 ML VIAL SUB-Q SCH ×2 (10:15→21:55)
[2020-09-05 15:38] LABS: Blood Urea Nitrogen 5 mg/dL (7-17); Calcium 8.9 mg/dL (8.4-10.2); Hemolysis Index 3
[2020-09-05 15:43] LABS: BUN/Creatinine Ratio 10
[2020-09-05] MEDS ORDERED: MELATONIN 5 MG TAB PO SCH (22:00)
[2020-09-05] MEDS ORDERED: ZOLPIDEM 5 MG TAB PO SCH (22:00)
[2020-09-06] MEDS: SODIUM CHLORIDE 0.9% 1000 ML 1,000 ML IV SCH ×2 (01:23→10:27)
[2020-09-06 08:59] VITALS: BP 126/88
--- NOTE | 2020-09-06 09:11 | Progress Note ---
Assessment and Plan Assessment and plan: Tylenol overdose -Poison control was consulted and was treated with N-acetylcysteine. -Tylenol level was high on admission and on subsequent checkup, but this morning Tylenol level is low -AST and ALT within normal limit, slight elevation in INR -Patient is doing well Suicidal attempt -Patient admitted on 1013 -Mental health consulted DVT prophylaxis GI prophylaxis on Protonix Disposition; pending inpatient psych placement. Patient is medically clear. History Interval history: Patient was seen and evaluated this morning Patient was alert and oriented Patient states she has some abdominal discomfort but no other complaints Hospitalist Physical - Physical exam Narrative exam: Not in cardiopulmonary distress. The patient appeared well nourished and normally developed. Vital signs as documented. Head exam is unremarkable. No scleral icterus . Neck is without jugular venous distension, thyromegaly, or carotid bruits. Lungs are clear to auscultation. Cardiac exam reveals regular rate and Rhythm. Abdominal exam reveals normal bowel sounds, nontender, no organomegaly. Extremities are nonedematous and both femoral and pedal pulses are normal. 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 No focal weakness. - Constitutional Vitals: Temp Pulse Resp BP Pulse Ox 98.5 F 70 16 126/88 97 09/06/20 08:28 09/06/20 09:09 09/06/20 04:15 09/06/20 08:28 09/06/20 08:28 General appearance: Present: no acute distress, mild distress HEART Score - HEART Score Risk factors: No known risk factors Troponin: Troponin T < 0.010 ng/mL (0.00-0.029) 09/02/20 03:44 Troponin: < normal limit - Critical Actions Critical Actions: 0-3 pts:0.9-1.7%risk of adverse cardiac event.Candidate for discharge Results - Labs CBC & Chem 7: 09/05/20 15:01 Labs: Laboratory Last Values PT 15.3 Sec. (12.2-14.9) H 09/03/20 03:55 INR 1.19 (0.87-1.13) H 09/03/20 03:55 APTT 25.8 Sec. (24.2-36.6) 09/02/20 03:44 ABG pH 7.427 pH Units (7.350-7.450) 09/02/20 05:07 ABG pCO2 29.9 mm Hg 09/02/20 05:07 ABG pO2 113.2 mm Hg (80.0-90.0) H 09/02/20 05:07 ABG HCO3 19.3 mmol/L (20.0-26.0) L 09/02/20 05:07 ABG O2 Saturation 98.2 % (95.0-99.0) 09/02/20 05:07 ABG O2 Content 14.8 (0.0-44) 09/02/20 05:07 ABG Base Excess -4.2 mmol/L (-2.0-3.0) L 09/02/20 05:07 ABG Hemoglobin 10.8 gm/dl (12.0-16.0) L 09/02/20 05:07 ABG Carboxyhemoglobin 1.3 % (0.0-5.0) 09/02/20 05:07 ABG Methemoglobin 0.8 % (0.0-1.5) 09/02/20 05:07 Oxyhemoglobin 96.1 % (95.0-99.0) 09/02/20 05:07 FiO2 21 % 09/02/20 05:07 Sodium 138 mmol/L (137-145) 09/05/20 15:01 Potassium 3.4 mmol/L (3.6-5.0) L 09/05/20 15:01 Chloride 107.5 mmol/L (98-107) H 09/05/20 15:01 Carbon Dioxide 20 mmol/L (22-30) L 09/05/20 15:01 Anion Gap 14 mmol/L 09/05/20 15:01 BUN 5 mg/dL (7-17) L 09/05/20 15:01 Creatinine 0.5 mg/dL (0.6-1.2) L 09/05/20 15:01 Estimated GFR > 60 ml/min 09/05/20 15:01 BUN/Creatinine Ratio 10 % 09/05/20 15:01 Glucose 133 mg/dL (65-100) H 09/05/20 15:01 Hemoglobin A1c 8.6 % (4-6) H 09/02/20 05:37 Lactic Acid 1.30 mmol/L (0.7-2.0) 09/02/20 03:44 Calcium 8.9 mg/dL (8.4-10.2) 09/05/20 15:01 Total Bilirubin 1.20 mg/dL (0.1-1.2) 09/03/20 03:55 Direct Bilirubin < 0.2 mg/dL (0-0.2) 09/02/20 19:09 Indirect Bilirubin 0.6 mg/dL 09/02/20 19:09 AST 13 units/L (5-40) 09/03/20 03:55 ALT 16 units/L (7-56) 09/03/20 03:55 Alkaline Phosphatase 84 units/L (35-129) 09/03/20 03:55 Ammonia 30.0 umol/L (25-60) 09/02/20 03:44 Total Creatine Kinase 143 units/L (30-135) H 09/02/20 03:44 Troponin T < 0.010 ng/mL (0.00-0.029) 09/02/20 03:44 Total Protein 6.7 g/dL (6.3-8.2) 09/03/20 03:55 Albumin 3.8 g/dL (3.9-5) L 09/03/20 03:55 Albumin/Globulin Ratio 1.3 % 09/03/20 03:55 TSH 6.520 mlU/mL (0.270-4.200) H 09/02/20 03:44 Urine Color Straw (Yellow) 09/02/20 15:09 Urine Turbidity Clear (Clear) 09/02/20 15:09 Urine pH 5.0 (5.0-7.0) 09/02/20 15:09 Ur Specific Collison 1.023 (1.003-1.030) 09/02/20 15:09 Urine Protein <15 mg/dl mg/dL (Negative) 09/02/20 15:09 Urine Glucose (UA) >=500 mg/dL (Negative) 09/02/20 15:09 Urine Ketones 80 mg/dL (Negative) 09/02/20 15:09 Urine Blood Neg (Negative) 09/02/20 15:09 Urine Nitrite Neg (Negative) 09/02/20 15:09 Urine Bilirubin Neg (Negative) 09/02/20 15:09 Urine Urobilinogen < 2.0 mg/dL (<2.0) 09/02/20 15:09 Ur Leukocyte Esterase Neg (Negative) 09/02/20 15:09 Urine WBC (Auto) 1.0 /HPF (0.0-6.0) 09/02/20 15:09 Urine RBC (Auto) 6.0 /HPF (0.0-6.0) 09/02/20 15:09 Urine HCG, Qual Negative (Negative) 09/02/20 15:09 Salicylates < 0.3 mg/dL (2.8-20.0) L 09/03/20 03:55 Urine Opiates Screen Presumptive negative 09/02/20 15:09 Urine Methadone Screen Presumptive negative 09/02/20 15:09 Acetaminophen 5.0 ug/mL (10.0-30.0) L 09/03/20 03:55 Ur Barbiturates Screen Presumptive negative 09/02/20 15:09 Ur Phencyclidine Scrn Presumptive negative 09/02/20 15:09 Ur Amphetamines Screen Presumptive negative 09/02/20 15:09 U Benzodiazepines Scrn Presumptive negative 09/02/20 15:09 Urine Cocaine Screen Presumptive negative 09/02/20 15:09 U Marijuana (THC) Screen Presumptive positive 09/02/20 15:09 Drugs of Abuse Note Disclamer 09/02/20 15:09 Plasma/Serum Alcohol < 0.01 % (0-0.07) 09/02/20 03:44 Microbiology: Microbiology 09/02/20 03:44 Peripheral/Venous Blood Culture - Preliminary NO GROWTH AFTER 4 DAYS 09/02/20 04:15 Peripheral/Venous Blood Culture - Preliminary NO GROWTH AFTER 4 DAYS [place]/IV: Voiding Method Toilet IV Catheter Type [Right INT / Saline Lock Forearm] IV Catheter Type [Left INT / Saline Lock Antecubital] Active Medications - Current Medications Current Medications: Generic Name Dose Route Start Last Admin Trade Name Freq PRN Reason Stop Dose Admin Heparin Sodium (Porcine) 5,000 unit 09/02/20 10:00 09/05/20 21:55 Heparin SUB-Q Not Given Q12HR SAVANNA Sodium Chloride 1,000 mls @ 125 mls/hr 09/02/20 06:00 09/06/20 01:23 Nacl 0.9% 1000 Ml IV 125 mls/hr DIRECT SAVANNA Administration Melatonin 5 mg 09/05/20 22:00 09/05/20 21:52 Melatonin PO 5 mg QHS SAVANNA Administration Ondansetron HCl 4 mg 09/02/20 05:30 09/02/20 07:10 Zofran IV 4 mg Q8H PRN Administration Nausea And Vomiting Pantoprazole Sodium 40 mg 09/04/20 10:00 09/05/20 16:35 Protonix PO 40 mg BIDAC SAVANNA Administration Sertraline HCl 25 mg 09/04/20 14:00 09/05/20 10:14 Zoloft PO 25 mg QDAY SAVANNA Administration Sodium Chloride 10 ml 09/02/20 10:00 09/05/20 21:54 Sodium Chloride Flush Syringe 10 Ml IV 10 ml BID SAVANNA Administration Sodium Chloride 10 ml 09/02/20 05:30 Sodium Chloride Flush Syringe 10 Ml IV PRN PRN LINE FLUSH Zolpidem Tartrate 7.5 mg 09/05/20 22:00 09/05/20 21:53 Ambien PO 7.5 mg QHS SAVANNA Administration
[2020-09-06] MEDS: SERTRALINE 25 MG TAB PO SCH (10:26)
[2020-09-06] MEDS: HEPARIN 5,000 UNIT/1 ML VIAL SUB-Q SCH (10:26)
[2020-09-06] MEDS: PANTOPRAZOLE 40 MG TAB PO SCH (10:27)
--- NOTE | 2020-09-06 13:43 | Progress Note ---
Subjective - Reason for Consult Consult date: 09/06/20 Reason for consult: SI - Chief Complaint Chief complaint: During my interview with the patient, she is sitting up in bed. She is eating. She is calm and cooperative. The patient says she "feels better and is optimistic." She denies SI/HI, and states, "I actually regret I did that." She says "I do still feel down, but I feel like I just need some therapy." The patient says, "I spoke with my and he's supportive. He just wants me better." The patient says, "I don't fear doing anything to myself if I go home," when asked about discharge. She says "my will be with me anyway." The patient denies hallucinations of any kind. Called the patient spouse, did not get an answer. Left message. REVIEW OF SYSTEMS Constitutional: Negative for weight loss ENT: Negative for stridor Respiratory: Negative for cough or hemoptysis All other systems reviewed and are negative MENTAL STATUS EXAMINATION General Appearance and Behavior: Age appropriate, good hygiene, wearing appropriate clothes, fair eye contact Cooperation: Participating/engaged Psychomotor Behavior: Psychomotor normal Mood: "down, but better." Affect and affective range: Congruent with stated mood Thought Process: logical Thought Content: None Speech: Normal rate, volume and rhythm Intellectual Functioning: Average Suicidal Ideation: Denies Homicidal Ideation: Denies HI Impulse Control: Limited Hallucinations: Wili Delusions: None elicited Insight and Judgment: Limited insight and judgment Memory: Normal Attention: Normal Orientation: Alert, oriented Assessment and Plan (1) Major depressive Disorder, Severe w/o Psychotic Features Current Visit: Yes Status: Acute TREATMENT d/c 1013 Continue Start Zoloft 25mg po daily Risks, benefits and alternatives of medications discussed with the patient, questions answered and consent obtained from patient. PSYCHOTHERAPY: Supportive psychotherapy provided MEDICAL: Per primary team DELIRIUM PRECAUTIONS: Please re-orient patient frequently, keep lights on during the day, and minimize benzodiazepines and opiates as these medications could worsen patient's confusion. 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 She has consistently denies thoughts of self harm, or dying. The patient understands and agrees that if suicidal thoughts are to arise she is to seek immediate assistance, including but not limited 911, ER and the crisis hotline. The patient is to abstain from alcohol use The patient to follow in 7 to 14 days upon discharge The assess or further discuss safety plan, and give the patient resources for outpatient psychiatry and cognitive behavioral therapy Will sign off. Thank you for this consult. Mental Status Exam - Vital signs Last Vital Signs Temp 98.5 F 09/06/20 08:28 Pulse 70 09/06/20 09:09 Resp 16 09/06/20 04:15 BP 126/88 09/06/20 08:28 Pulse Ox 97 09/06/20 08:28
--- NOTE | 2020-09-06 14:54 | Discharge Summary ---
Providers - Providers Date of Admission: 09/02/20 05:46 Date of discharge: 09/06/20 Attending physician: HANY CHAPA MD Primary care physician: DRESS OPERATOR Hospitalization Reason for admission: Suicidal attempt with acetaminophen overdose Condition: Stable Hospital course: History of present illness: History of presenting illness, patient is a 25-year-old female who took about 20 tablets of extra strength Tylenol with the intention of killing herself after having some misunderstanding with her significant other. There was no history of nausea and vomiting, there was no history of abdominal pain, shortness of breath, headache, dizziness or altered mental status, however patient was unable to provide detailed information about what happened. hospital course Tylenol overdose -Poison control was consulted and was treated with N-acetylcysteine. -Tylenol level was high on admission and on subsequent checkup, but this morning Tylenol level is low -AST and ALT within normal limit, slight elevation in INR -Patient is doing well Suicidal attempt -Patient was on 1013 and rescind by psych -Mental health consulted and recommend to discharge home and will follow as an o/p and resources were given. - patient denies sucidal ideation Disposition;home, psych said patient doesn't need inpatient psych admission. psych put the patient on zoloft. Disposition: DC- TO HOME OR SELFCARE - Discharge Diagnoses (1) Acetaminophen overdose Status: Acute Qualifiers: Encounter type: initial encounter Injury intent: intentional self-harm Qualified Code(s): T39.1X2A - Poisoning by 4-Aminophenol derivatives, intentional self-harm, initial encounter (2) Major depression Status: Acute (3) Suicide attempt by acetaminophen overdose Status: Acute Qualifiers: Encounter type: initial encounter Qualified Code(s): T39.1X2A - Poisoning by 4-Aminophenol derivatives, intentional self-harm, initial encounter Core Measure Documentation - Palliative Care Palliative Care/ Comfort Measures: Not Applicable - Core Measures Any of the following diagnoses?: none Exam - Physical Exam Narrative exam: Not in cardiopulmonary distress. The patient appeared well nourished and normally developed. Vital signs as documented. Head exam is unremarkable. No scleral icterus . Neck is without jugular venous distension, thyromegaly, or carotid bruits. Lungs are clear to auscultation. Cardiac exam reveals regular rate and Rhythm. Abdominal exam reveals normal bowel sounds, nontender, no organomegaly. Extremities are nonedematous and both femoral and pedal pulses are normal. 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 No focal weakness. - Constitutional Vitals: Temp Pulse Resp BP Pulse Ox 98.5 F 70 16 126/88 97 09/06/20 08:28 09/06/20 09:09 09/06/20 04:15 09/06/20 08:28 09/06/20 08:28 Plan Activity: no restrictions Weight Bearing Status: Full Weight Bearing Diet: regular Additional Instructions: Patient need F/U with o/p metal health. Follow up with: PRIMARY CARE, [Primary Care Provider] - 3-5 Days Prescriptions: Sertraline [Zoloft] 25 mg PO QDAY #30 tab
== END 2020-09-06 15:30 | disposition home or self-care (01) | DRG 918 ==
LOC: ED 00:54 → CC1 05:46 → 4A 09-03 07:34
PROVIDERS: ADMIT Internal Medicine; ATTEND Internal Medicine
DX: T39.1X2A Poisoning by 4-Aminophenol derivatives, intentional self-harm, initial encounter (principal); F32.2 Major depressive disorder, single episode, severe without psychotic features; Z88.8 Allergy status to other drugs, medicaments and biological substances
CPT/HCPCS: 36415; 70450; 71045; 80048; 80053; 80076; 80307; 80320; 81001; 81025; 82140; 82550; 82803; 83036; 84443; 84484; 85610; 85730; 87040; 93005; 96361; 96365; 96366; 96375; G0378; C9113; G0480; J0132; J1644; J2405; J7030; J7060; J7070